=== PATIENT | female | born 1990 | race African-American/Black ===

== ENCOUNTER 2023-08-18 07:11 | Emergency (ER) | payer SELFPAY ==
--- NOTE | 2023-08-18 07:35 | ER ---
Nurse's Notes [facility] Name: Yasmin Ly Age: 33 yrs Sex: Female : 1990 Arrival Date: 08/18/2023 Time: 07:11 Bed 14 Private MD: Diagnosis: Acute sinusitis, unspecified Presentation: 08/17 07:19 Chief complaint: Patient states: cough and congestion x 1 week ago, pt states "I feel aa5 short of breath like I need an inhaler". 07:19 Coronavirus screen: congestion, cough unrelated to allergies. Ebola Screen: Patient aa5 denies travel to an Ebola-affected area in the 21 days before illness onset. Initial Sepsis Screen: Does the patient meet any 2 criteria? No. Patient's initial sepsis screen is negative. Does the patient have a suspected source of infection? No. Patient's initial sepsis screen is negative. Risk Assessment: Do you want to hurt yourself or someone else? Patient reports no desire to harm self or others. Onset of symptoms was August 2023. 07:19 Acuity: BULMARO 3 aa5 07:19 Method Of Arrival: Ambulatory aa5 Historical: - Allergies: 07:27 NKA; aa5 - PMHx: 07:27 seasonal allergies; aa5 - PSHx: 07:27 section; aa5 - Immunization history:: Adult Immunizations up to date. - Infectious Disease History:: Denies. - Social history:: Smoking status: Patient denies any tobacco usage or history of. Screenin:20 [facility] ED Fall Risk Assessment (Adult) History of falling in the last 3 months, aa5 including since admission No falls in past 3 months (0 pts) Confusion or Disorientation No (0 pts) Intoxicated or Sedated No (0 pts) Impaired Gait No (0 pts) Mobility Assist Device Used No (0 pt) Altered Elimination No (0 pt) Score/Fall Risk Level 0 - 2 = Low Risk Oriented to surroundings, Maintained a safe environment, Educated pt \\T\\ family on fall prevention, incl call for assistance when getting out of bed. Abuse screen: Denies threats or abuse. Nutritional screening: No deficits noted. Tuberculosis screening: No symptoms or risk factors identified. Assessment: 07:20 General: Appears comfortable, Behavior is calm, cooperative. Pain: Denies pain. Neuro: aa5 Level of Consciousness is awake, alert, obeys commands, Oriented to person, place, time, situation. Cardiovascular: Heart tones S1 S2 present Rhythm is regular. Respiratory: Reports shortness of breath at rest cough that is productive, with yellow sputum Airway is patent Respiratory effort is even, unlabored, Respiratory pattern is regular, symmetrical, Breath sounds are clear bilaterally. GI: No signs and/or symptoms were reported involving the gastrointestinal system. : No signs and/or symptoms were reported regarding the genitourinary system. EENT: Reports nasal congestion nasal discharge that is yellow. Derm: Skin is dry, Skin is normal, Skin temperature is warm. Musculoskeletal: Range of motion: intact in all extremities. 07:40 Neuro: Level of Consciousness is awake, alert, obeys commands, Oriented to person, aa5 place, time, situation. Respiratory: Airway is patent Respiratory effort is even, unlabored, Respiratory pattern is regular, symmetrical. Derm: Skin is dry, Skin is normal, Skin temperature is warm. Vital Signs: 07:19 BP 115 / 70; Pulse 84; Resp 20 S; Temp 98.6(O); Pulse Ox 99% on R/A; Weight 107.05 kg aa5 (R); Height 5 ft. 7 in. (R); 07:19 Body Mass Index 36.96 (107.05 kg, 170.18 cm) aa5 ED Course: 07:14 Patient arrived in ED. mg5 07:16 Escobar Huerta MD is Attending Physician. ec2 07:19 Arm band placed on Patient placed in an exam room, on a stretcher. aa5 07:19 Patient has correct armband on for positive identification. Bed in low position. Call aa5 light in reach. Side rails up X 1. Pulse ox on. NIBP on. 07:26 Genny Goodrich, RN is Primary Nurse. aa5 07:27 Triage completed. aa5 07:40 No provider procedures requiring assistance completed. Patient did not have IV access aa5 during this emergency room visit. Administered Medications: No medications were administered Medication: 07:20 VIS not applicable for this client. aa5 Outcome: 07:34 Discharge ordered by . ec2 07:40 Discharged to home ambulatory, aa5 07:40 Condition: stable 07:40 Discharge instructions given to patient, Instructed on discharge instructions, follow up and referral plans. medication usage, Demonstrated understanding of instructions, follow-up care, medications, Prescriptions given X 2, 07:41 Patient left the ED. aa5 Signatures: Genny Goodrich RN RN aa5 Paulette Traylor 5 Escobar Huerta MD MD ec2 Corrections: (The following items were deleted from the chart) 08:39 07:51 Patient left the ED. aa5 aa5
--- NOTE | 2023-08-18 07:35 | EDPHYS ---
Physician Documentation [facility] Name: Yasmin Ly Age: 33 yrs Sex: Female : 1990 Arrival Date: 08/18/2023 Time: 07:11 Bed 14 Private MD: ED Physician Escobar Huerta HPI: 08/17 07:36 This 33 yrs old Black Female presents to ER via Ambulatory with complaints of Flu ec2 Symptoms. 07:36 Patient arrives today for upper respiratory symptoms. Patient reports she been having ec2 some congestion ongoing for 2 weeks. Patient reports frequent cough as well. Patient reports no nausea or vomiting or diarrhea. Patient reports adequate p.o. intake. Patient reports history of allergies. Has taken [id number] medication with some improvement in symptoms. Denies smoking.. Historical: - Allergies: 07:27 NKA; aa5 - PMHx: 07:27 seasonal allergies; aa5 - PSHx: 07:27 section; aa5 - Immunization history:: Adult Immunizations up to date. - Infectious Disease History:: Denies. - Social history:: Smoking status: Patient denies any tobacco usage or history of. ROS: 07:37 Constitutional: as per hpi ec2 Exam: 07:37 Constitutional: GEN: NAD Head: atraumatic Eyes: EOMI Ears: External ears are ec2 normal. CV: regular rate LUNGS: no respiratory distress, no wheezes, rales, or rhonchi ABD: non-distended SKIN: no evidence of rashes MSK: no evidence of trauma NEURO: moves all extremities equally Vital Signs: 07:19 BP 115 / 70; Pulse 84; Resp 20 S; Temp 98.6(O); Pulse Ox 99% on R/A; Weight 107.05 kg aa5 (R); Height 5 ft. 7 in. (R); 07:19 Body Mass Index 36.96 (107.05 kg, 170.18 cm) aa5 MDM: 07:27 Patient medically screened. ec2 07:37 Data reviewed: vital signs. ED course: Patient arrives today for upper respiratory ec2 symptoms. Examination level for reassuring pulmonary examination along with reassuring vital signs. Given the duration of symptoms ongoing for 2 weeks, will treat the patient for bacterial sinusitis with antibiotics and prescribe the patient an inhaler as well. Considered sinusitis, pneumonia, patient otherwise well-appearing, do not feel she would benefit from any lab work such as CBC or BMP or chest x-ray. . Administered Medications: No medications were administered Disposition Summary: 08/18/23 07:34 Discharge Ordered Notes: Location: Home ec2 Condition: Stable ec2 Diagnosis - Acute sinusitis, unspecified ec2 Followup: ec2 - With: Private Physician - When: - Reason: Re-evaluation by your physician Discharge Instructions: - Discharge Summary Sheet ec2 - Sinusitis, Adult ec2 Forms: - Work release form ec2 - Medication Reconciliation Form ec2 - Antibiotic Education ec2 - Prescription Opioid Use ec2 - Patient Portal Instructions ec2 - Leadership Thank You Letter ec2 Prescriptions: - albuterol sulfate 90 mcg/actuation Inhalation HFA Aerosol Inhaler - inhale 2 puff INHALATION route every 4 hours administer via ventilator; 1 unit; ec2 Refills: 0, Product Selection Permitted - Zithromax Z-Allan 250 mg Oral Tablet - take 1 tablet ORAL route as directed for 5 days Day 1 - take two (2) tablets ec2 one time. Day 2, 3, 4 , 5 take one (1) tablet once daily.; 6 tablet; Refills: 0, Product Selection Permitted Signatures: Genny Goodrich RN RN aa5 Escobar Huerta MD MD ec2
[2023-08-18 08:05] VITALS: BP 115/70; TEMP 98.6; O2SAT 99
== END 2023-08-18 07:51 | disposition home or self-care (01) ==
LOC: ER 07:11
DX: J01.90 Acute sinusitis, unspecified (principal)
CPT/HCPCS: 99283